=== PATIENT | male | born 1975 | race Hispanic/Latino ===

== ENCOUNTER 2017-11-27 03:04 | Emergency (ER) | payer SELFPAY ==
[2017-11-27] MEDS ORDERED: Ketorolac Tromethamine 30 MG/ML VIAL ONE (03:34)
[2017-11-27] MEDS ORDERED: Lidocaine 1% w/Epinephrine 1:100K 20 ML VIAL ONE (03:34)
[2017-11-27] MEDS ORDERED: Sulfameth/Trimethoprim DS 800-160mg TAB ONE (04:40)
[2017-11-27] MEDS ORDERED: HYDROcodone/Acetaminophen 5/325 mg Tablet ONE (04:40)
== END 2017-11-27 05:00 | disposition home or self-care (01) ==
LOC: ERS 03:04
DX: L02.416 Cutaneous abscess of left lower limb (principal); L03.116 Cellulitis of left lower limb; F17.210 Nicotine dependence, cigarettes, uncomplicated; J45.909 Unspecified asthma, uncomplicated
CPT/HCPCS: 10060; 96372; J1885; J2001

== ENCOUNTER 2018-01-20 21:14 | Emergency (ER) | payer SELFPAY ==
[~2018-01-20 21:14] MED LIST: ISOVUE-370 76%-LOCM 1 ML ONE
[2018-01-20] MEDS ORDERED: Ondansetron HCl/PF 4 MG/2 ML Vial ONE (21:57)
[2018-01-20] MEDS ORDERED: Morphine 4 MG/ML VIAL ONE (21:57)
[2018-01-20] MEDS ORDERED: Ketorolac Tromethamine 30 MG/ML VIAL ONE (21:57)
[2018-01-20 22:15] LABS: #Basophils 0.1 thou/uL (0.0-0.2); #Eosinphils 0.2 thou/uL (0.0-0.7); #Lymphocytes 1.9 thou/uL (1.20-3.40); #Monocytes 0.6 thou/uL (0.11-0.59); %Basophils 0.6 % (0.0-1.0); %Eosinophils 1.6 % (0.0-10.0); %Monocytes 4.9 % (0.0-10.0); %Neutrophils 77.9 % (42.0-75.0); Hemoglobin 15.8 g/dL (14.0-18.0); Mean Corpuscular HGB CONC 34.2 g/dL (32.0-36.0); Mean Corpuscular Hemoglobin 31.8 pg (27.0-31.0); Mean Platelet Volume 7.8 fL (7.4-10.4); Platelet Count 324 thou/uL (130-400); RBC Distribution Width 12.3 % (11.5-14.5); Red Blood Cell (RBC) Count 4.97 mill/uL (4.70-6.10); White Blood Cell (WBC) Count 12.9 thou/uL (4.8-10.8)
[2018-01-20 22:26] LABS: ALT (SGPT) 26 U/L (8-55); AST (SGOT) 20 U/L (5-34); Albumin 4.6 g/dL (3.5-5.0); Alkaline Phosphatase 117 U/L (40-150); Anion Gap 13 mmol/L (10-20); BUN (Urea Nitrogen) 14 mg/dL (8.9-20.6); Bilirubin, Total 0.5 mg/dL (0.2-1.2); Calc. Creatinine Clearance 0 mL/min (70-130); Calcium 9.5 mg/dL (7.8-10.44); Carbon Dioxide 25 mmol/L (22-29); Chloride 103 mmol/L (98-107); Estimated GFR-MDRD 53; Globulin 3.1 g/dL (2.4-3.5); Glucose 157 mg/dL (70-105); Lipase 15 U/L (8-78); Magnesium 2.2 mg/dL (1.6-2.6); Potassium 4.3 mmol/L (3.5-5.1); Protein, Total 7.7 g/dL (6.0-8.3); Sodium 137 mmol/L (136-145)
--- NOTE | 2018-01-20 23:29 | CT ---
CT OF ABDOMEN AND PELVIS WITH CONTRAST: 01/20/18 No prior comparison. INDICATION: Abdominal pain. FINDINGS: The bowel is incompletely assessed without enteric contrast administration. There is distention of th e stomach by ingested material. No focal hepatic or splenic lesion. No hydronephrosis of either kidne y. No evidence of adrenal mass or peripancreatic inflammation. No pneumoperitoneum or ascites. Abdomi nal aorta is normal in caliber. Imaged lung bases reveal no significant abnormality. There is mild he terogeneity and prominence of the prostate gland. Internal calcifications are present. Scattered osse ous degenerative change present. IMPRESSION: 1. No evidence of acute process. The bowel is incompletely assessed without the presence of ente tonny contrast. 2. Heterogeneity and prominence of the prostate gland. Recommend clinical correlation for furthe r assessment. POS: EDOUARD
[2018-01-21 00:58] LABS: Bilirubin Negative (Negative); Blood, Urine Large (Negative); Clarity CLEAR (Clear); Glucose, Urine (Dipstick) Negative (Negative); Leukocyte Negative (Negative); Nitrite Negative (Negative); Protein, Urine (Dipstick) Negative (Neg-Trace); pH, Urine 6.5 (5.0-9.0)
[2018-01-21 01:01] LABS: Bacteria/HPF None Seen HPF (None Seen); Hyaline Casts/LPF 0-3 HYALINE CAST LPF (0-3 Hyaline); Pathc Cast-AUWi Flag 0.29 (0-2.49); RBC/HPF GREATER THAN 50-TNTC HPF (0-3); Squamous Epithelial None Seen HPF (0-3); WBC/HPF 0-3 HPF (0-3)
[2018-01-21 01:35] LABS: Specific Gravity, Urine Greater than 1.060 (1.002-1.036)
[2018-01-21] MEDS ORDERED: HYDROcodone/Acetaminophen 5/325 mg Tablet ONE (01:38)
--- NOTE | 2018-01-21 07:08 | ULT ---
SCROTAL ULTRASOUND: CLINICAL HISTORY: New onset right hemiscrotal pain. TECHNIQUE: Doppler color-flow with spectral analysis performed. FINDINGS: There is Doppler color-flow elicited to each testis. No intratesticular mass. There is evidence of a mild hydrocele formation. Epididymal cyst formation is seen on the left. The right epididymis is grossly unremarkable. IMPRESSION: 1. No sonographic evidence of testicular torsion or intratesticular mass. 2. Mild volume hydrocele. 3. Left epididymal cyst formation. POS: C
== END 2018-01-21 01:48 | disposition home or self-care (01) ==
LOC: ERS 21:14
DX: N20.0 Calculus of kidney (principal); E86.0 Dehydration; J45.909 Unspecified asthma, uncomplicated; F17.210 Nicotine dependence, cigarettes, uncomplicated
CPT/HCPCS: 74177; 76870; 80053; 81003; 81015; 83690; 83735; 85025; 87086; 93976; 96361; 96374; 96375; J1885; J2270; J2405

== ENCOUNTER 2021-09-12 19:52 | Emergency (ER) | payer SELFPAY | END 2021-09-12 22:02 | disposition home or self-care (01) | LOC: ERS 19:52 | DX: S68.121A Partial traumatic metacarpophalangeal amputation of left index finger, initial encounter (principal); F17.210 Nicotine dependence, cigarettes, uncomplicated; W26.8XXA Contact with other sharp object(s), not elsewhere classified, initial encounter ==

== ENCOUNTER 2021-09-19 15:23 | Emergency (ER) | payer SELFPAY ==
[2021-09-19] MEDS ORDERED: Ketorolac Tromethamine 30 MG/ML VIAL ONE (18:38)
== END 2021-09-19 19:40 | disposition home or self-care (01) ==
LOC: ERS 15:23
DX: R07.89 Other chest pain (principal); F17.210 Nicotine dependence, cigarettes, uncomplicated
CPT/HCPCS: 71045; 96372; J1885